=== PATIENT | female | born 1990 | race Caucasian/White ===

== ENCOUNTER → 2024-01-22 13:21 | Outpatient (REF) | payer OTHER, SELFPAY | LOC: PNTC 13:21 | PROVIDERS: ATTENDING PHYSICIAN Advanced Practice Midwife | DX: O99.210 Obesity complicating pregnancy, unspecified trimester (principal); O43.219 Placenta accreta, unspecified trimester | CPT/HCPCS: 76805; 93976 ==

== ENCOUNTER → 2024-02-27 13:08 | Outpatient (REF) | payer OTHER, SELFPAY | LOC: PNTC 13:08 | PROVIDERS: ATTENDING PHYSICIAN Advanced Practice Midwife | DX: O99.210 Obesity complicating pregnancy, unspecified trimester (principal); O43.212 Placenta accreta, second trimester | CPT/HCPCS: 76811; 93976 ==

== ENCOUNTER → 2024-03-04 10:56 | Outpatient (REF) | payer OTHER, SELFPAY | LOC: PNTC 10:56 | PROVIDERS: ATTENDING PHYSICIAN Advanced Practice Midwife | DX: O99.210 Obesity complicating pregnancy, unspecified trimester (principal) | CPT/HCPCS: 76815 ==

== ENCOUNTER → 2024-03-18 09:43 | Outpatient (REF) | payer OTHER, SELFPAY | LOC: PNTC 09:43 | PROVIDERS: ATTENDING PHYSICIAN Advanced Practice Midwife | DX: O99.210 Obesity complicating pregnancy, unspecified trimester (principal) | CPT/HCPCS: 76816 ==

== ENCOUNTER → 2024-04-15 09:48 | Outpatient (REF) | payer OTHER, SELFPAY | LOC: PNTC 09:48 | PROVIDERS: ATTENDING PHYSICIAN Advanced Practice Midwife | DX: O99.213 Obesity complicating pregnancy, third trimester (principal); O24.410 Gestational diabetes mellitus in pregnancy, diet controlled | CPT/HCPCS: 76816 ==

== ENCOUNTER → 2024-05-13 08:57 | Outpatient (REF) | payer OTHER, SELFPAY | LOC: PNTC 08:57 | PROVIDERS: ATTENDING PHYSICIAN Advanced Practice Midwife; PRIMARYCARE PHYSICIAN Family Medicine | DX: O99.210 Obesity complicating pregnancy, unspecified trimester (principal) | CPT/HCPCS: 59025; 76816 ==

== ENCOUNTER → 2024-05-20 08:59 | Outpatient (REF) | payer OTHER, SELFPAY | LOC: PNTC 08:59 | PROVIDERS: ATTENDING PHYSICIAN Advanced Practice Midwife | DX: O99.210 Obesity complicating pregnancy, unspecified trimester (principal) | CPT/HCPCS: 59025; 76818 ==

== ENCOUNTER → 2024-05-25 14:13 | Outpatient (REF) | payer OTHER, SELFPAY | LOC: PNTC 14:13 | PROVIDERS: ATTENDING PHYSICIAN Advanced Practice Midwife | DX: O99.210 Obesity complicating pregnancy, unspecified trimester (principal); O24.419 Gestational diabetes mellitus in pregnancy, unspecified control; O36.8130 Decreased fetal movements, third trimester, not applicable or unspecified | CPT/HCPCS: 76815 ==

== ENCOUNTER → 2024-06-03 10:43 | Outpatient (REF) | payer OTHER, SELFPAY | LOC: PNTC 10:43 | PROVIDERS: ATTENDING PHYSICIAN Advanced Practice Midwife | DX: O99.210 Obesity complicating pregnancy, unspecified trimester (principal); O24.419 Gestational diabetes mellitus in pregnancy, unspecified control | CPT/HCPCS: 59025; 76815 ==

== ENCOUNTER → 2024-06-10 08:53 | Outpatient (REF) | payer OTHER, SELFPAY | LOC: PNTC 08:53 | PROVIDERS: ATTENDING PHYSICIAN Advanced Practice Midwife | DX: O99.210 Obesity complicating pregnancy, unspecified trimester (principal) | CPT/HCPCS: 59025; 76816 ==

== ENCOUNTER → 2024-06-17 08:54 | Outpatient (REF) | payer OTHER, SELFPAY | LOC: PNTC 08:54 | PROVIDERS: ATTENDING PHYSICIAN Advanced Practice Midwife | DX: O24.414 Gestational diabetes mellitus in pregnancy, insulin controlled (principal); O99.213 Obesity complicating pregnancy, third trimester; O28.8 Other abnormal findings on antenatal screening of mother | CPT/HCPCS: 59025; 76818 ==

== ENCOUNTER → 2024-06-24 08:57 | Outpatient (REF) | payer OTHER, SELFPAY | LOC: PNTC 08:57 | PROVIDERS: ATTENDING PHYSICIAN Advanced Practice Midwife | DX: O24.414 Gestational diabetes mellitus in pregnancy, insulin controlled (principal); O99.213 Obesity complicating pregnancy, third trimester | CPT/HCPCS: 59025; 76815 ==

== ENCOUNTER 2024-07-01 05:28 | Inpatient (IN) | payer OTHER, SELFPAY ==
[2024-07-01 05:37] VITALS: BMI 48.3
[2024-07-01] MEDS: LR 1000 IV ×2 (05:45→06:47)
[2024-07-01 05:55] VITALS: BP 128/72
[2024-07-01 05:58] LABS: Glucose - Point of Care 99 mg/dl (70-99)
[2024-07-01 06:05] LABS: Hemoglobin 9.6 g/dL (12.0-16.0); Mean Corpuscular Hgb 25.1 pg (27.0-31.0); Mean Corpuscular Volume 78.3 fL (81.0-99.0); Mean Platelet Volume 11.1 fL (7.4-10.4); Platelet Count 267 10^3/uL (130-400); Red Blood Cell Count 3.83 10^6/uL (4.20-5.40); Red Cell Dist. Width 13.5 % (11.5-14.5); White Blood Cell Count 8.6 10^3/uL (4.8-10.8)
[2024-07-01] MEDS: TYLENOL 1000 MG PO (07:09)
[2024-07-01] MEDS: BICITRA 30 ML PO (07:10)
[2024-07-01] MEDS: BENADRYL 25 MG IV (10:33)
[2024-07-01] MEDS: TORADOL 15 MG IV ×2 (15:00→20:26)
[2024-07-01] MEDS: FLUSH (NSS) 1 FLUSH IV (20:29)
[2024-07-02] MEDS: TORADOL 15 MG IV ×2 (03:07→08:57)
[2024-07-02 03:48] LABS: Hematocrit 29.4 % (37.0-47.0); Hemoglobin 9.4 g/dL (12.0-16.0); Mean Corpuscular Hgb 25.8 pg (27.0-31.0); Mean Corpuscular Volume 80.5 fL (81.0-99.0); Mean Platelet Volume 11.1 fL (7.4-10.4); Platelet Count 275 10^3/uL (130-400); Red Blood Cell Count 3.65 10^6/uL (4.20-5.40); Red Cell Dist. Width 13.4 % (11.5-14.5); White Blood Cell Count 8.7 10^3/uL (4.8-10.8)
[2024-07-02] MEDS: PRENATAL PLUS 1 TABLET PO (06:02)
--- NOTE | 2024-07-02 13:32 | W.PN.ANS.POP ---
Anesthesia Post Operative
- Anesthesia Post Op Note
Vital Signs Stable-See Nursing Note: Yes
Airway Patent: Yes
Adequate Pain Control: Yes
Change in Mental Status: No
Current Postoperative Nausea & Vomiting: No
Anesthesia Complications: No
General Anesthetic Recall: No
Unplanned Admission: No
Post Op Hydration Adequate: Yes
[2024-07-02] MEDS: FEOSOL 325 MG PO (14:57)
[2024-07-02] MEDS: MOTRIN 600 MG PO ×2 (14:57→21:01)
[2024-07-02] MEDS: TYLENOL 650 MG PO ×2 (14:57→21:01)
[2024-07-02 17:05] LABS: ALT (SGPT) 16 U/L (0-35); AST (SGOT) 22 U/L (14-36); Albumin 3.2 g/dl (3.5-5.0); Alkaline Phosphatase 82 U/L (38-126); Blood Urea Nitrogen 10 mg/dl (7-17); Calcium 8.7 mg/dl (8.4-10.2); Carbon Dioxide 23 mmol/L (22-30); Chloride 111 mmol/L (98-107); Estimated Creatinine Clearance > 125 ml/min; Glucose 92 mg/dl (70-99); Potassium 4.4 mmol/L (3.5-5.1); Sodium 137 mmol/L (135-145); Total Bilirubin 0.3 mg/dl (0.2-1.3); Total Protein 5.8 g/dl (6.3-8.2); eGFR > 60.00
[2024-07-03] MEDS: MUCINEX 600 MG PO ×2 (02:38→20:14)
[2024-07-03] MEDS: TYLENOL 650 MG PO ×3 (02:59→20:04)
[2024-07-03] MEDS: MOTRIN 600 MG PO ×3 (03:01→20:04)
[2024-07-03] MEDS: MYLICON 80 MG PO (08:07)
[2024-07-03] MEDS: SENOKOT-S 1 TABLET PO (08:07)
[2024-07-03] MEDS: PRENATAL PLUS 1 TABLET PO ×2 (08:07)
[2024-07-03] MEDS: FEOSOL 325 MG PO (08:07)
[2024-07-03 12:58] LABS: Syphilis/T. pallidum Ab Reflex Negative (Negative)
[2024-07-04] MEDS: PERCOCET 5/325 1 TABLET PO ×3 (00:16→11:43)
[2024-07-04] MEDS: MOTRIN 600 MG PO ×2 (05:15→11:43)
--- NOTE | 2024-07-04 08:51 | W.DS.TRANS ---
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
-
Discharge Instructions:
Discharge Diagnosis/Procedures rcs
Instructions:
Stand-Alone Forms: LDRP Delivery
Changes to Home Medications: No
Discharge Medications:
DC Medications w/original date entered in [facility]
prenat.vits,imelda,ihs-cgxj-ltohv 1 tab PO DAILY AT 0700 12/16/22
omeprazole 20 mg PO DAILY 07/01/24
ibuprofen 600 mg tablet 600 mg PO Q6HPRN PRN cramps #90 tabs 07/04/24
oxycodone-acetaminophen 5 mg-325 mg tablet 1 tab PO Q4HPRN PRN moderate pain #8 tabs 07/04/24
Home Medication Changes
Pending Results: No
Total time spent discharging patient (in min): 15
[2024-07-04] MEDS: MUCINEX 600 MG PO ×2 (08:56→09:00)
[2024-07-04] MEDS: SENOKOT-S 1 TABLET PO (08:56)
[2024-07-04] MEDS: FEOSOL 325 MG PO (08:56)
== END 2024-07-04 13:27 | disposition home or self-care (01) | DRG 788 ==
LOC: LDRP 05:28
PROVIDERS: Obstetrics & Gynecology; Student in an Organized Health Care Education/Training Program; ADMITTING PHYSICIAN Advanced Practice Midwife
PROC: 10D00Z1 Extraction of Products of Conception, Low, Open Approach (ICD-10-PCS; 2024-07-01)
DX: O34.211 Maternal care for low transverse scar from previous cesarean delivery (principal); Z3A.39 39 weeks gestation of pregnancy; Z37.0 Single live birth; O40.3XX0 Polyhydramnios, third trimester, not applicable or unspecified; O24.429 Gestational diabetes mellitus in childbirth, unspecified control
CPT/HCPCS: 88307; 36415; 80053; 82962; 85027; 86780; 86850; 86900; 86901